=== PATIENT | male | born 1945 | race Caucasian/White ===

== ENCOUNTER 2021-12-28 08:04 | Day surgery (SDC) | payer MEDICARE ==
[2021-12-26 11:27] LABS: BASOPHILS # (AUTO) 0.1 X10'3 (0-0.2); BASOPHILS % (AUTO) 1.1 % (0-1); EOSINOPHILS # (AUTO) 0.5 X10'3 (0-0.9); EOSINOPHILS % (AUTO) 4.8 % (0-6); HEMATOCRIT 41.1 % (42.0-52.0); HEMOGLOBIN 13.9 g/dl (14.0-17.9); LYMPHOCYTES # (AUTO) 1.3 X10'3 (1.1-4.8); LYMPHOCYTES % (AUTO) 13.2 % (21-51); MEAN CORPUSCULAR HEMOGLOBIN 30.4 PG (27.0-31.0); MEAN CORPUSCULAR HGB CONC 33.8 g/dL (33.0-36.5); MEAN PLATELET VOLUME 7.2 FL (7.4-10.4); MONOCYTES # (AUTO) 1.5 X10'3 (0-0.9); MONOCYTES % (AUTO) 14.8 % (2-12); NEUTROPHILS # (AUTO) 6.7 X10'3 (1.8-7.7); NEUTROPHILS % (AUTO) 66.1 % (42-75); PLATELET COUNT 199 X10'3 (140-440); RED BLOOD COUNT 4.57 X10'6 (4.70-6.10); RED CELL DISTRIBUTION WIDTH 15.3 % (11.5-14.5); WHITE BLOOD COUNT 10.1 X10'3 (4.5-11.0)
[2021-12-26 11:42] LABS: ALANINE AMINOTRANSFERASE 20 U/L (12-78); ALBUMIN 3.7 G/DL (3.4-5.0); ALKALINE PHOSPHATASE 70 IU/L (46-116); ANION GAP 9 (8-16); ASPARTATE AMINO TRANSFERASE 18 U/L (10-37); BILIRUBIN,TOTAL 0.9 MG/DL (0.1-1.0); BLOOD UREA NITROGEN 20 MG/DL (7-18); BUN/CREATININE RATIO 19.8 (5.4-32.0); CALCIUM 8.7 MG/DL (8.5-10.1); CHLORIDE 102 MMOL/L (99-107); CREATININE 1.01 MG/DL (0.60-1.10); GLUCOSE 135 MG/DL (70-104); POTASSIUM 4.1 MMOL/L (3.5-5.1); SODIUM 137 MMOL/L (135-145); TOTAL CARBON DIOXIDE 26.4 MMOL/L (24-32); TOTAL PROTEIN 7.5 G/DL (6.4-8.2); eGFR 71 ML/MIN
[2021-12-26 11:49] LABS: APTT 35 SECONDS (22-32)
[~2021-12-28] VITALS: Ht 172.7 cm; Wt 74.9 kg
[2021-12-28] VITALS (11 sets, daily range): BP systolic 129–157; BP diastolic 58–83
[~2021-12-28 08:04] MED LIST: ASPI-83 PO; FLO0.4C PO; METO-539 PO; SIMV40TA PO; TRAZ-256 PO
[2021-12-28] MEDS ORDERED: nitroGLYCERIN 0.4mg SUBLingual tab SL PRN ×2 (08:25→11:40)
[2021-12-28] MEDS ORDERED: diphenhydrAMINE 25mg capsule PO PRN (08:25)
[2021-12-28] MEDS ORDERED: LORazepam 0.5 MG tablet PO PRN (08:25)
[2021-12-28] MEDS ORDERED: normal saline 1,000 ML IV SCH (08:25)
[2021-12-28] MEDS ORDERED: FLEC100T35 PO (08:33)
[2021-12-28] MEDS ORDERED: FLO0.4C PO (08:33)
[2021-12-28] MEDS ORDERED: WARF-65 PO (08:33)
[2021-12-28] MEDS ORDERED: midazolam 1 mg/ML 2ml injection ONE (09:55)
[2021-12-28] MEDS ORDERED: iohexol 350MG/ML 100ml bottle IV ONE ×3 (09:55→10:55)
[2021-12-28] MEDS ORDERED: fentaNYL/PF 50MCG/1 ML 2ML syringe ONE (09:55)
[2021-12-28] MEDS ORDERED: LIDOcaine 1% 30ml preserv. free vial ONE (09:55)
[2021-12-28] MEDS ORDERED: OXAZEpam 15mg capsule PO PRN (11:40)
[2021-12-28] MEDS ORDERED: normal saline 1000ml 1,000 ML IV SCH (11:40)
[2021-12-28] MEDS ORDERED: HYDROcodone/acetaminophen 10/325mg tab PO PRN (11:40)
[2021-12-28] MEDS ORDERED: ondansetron/PF 4mg/2ml inj IV PRN (11:40)
[2021-12-28] MEDS ORDERED: HYDROcodone/acetaminophen 5mg/325mg tablet PO PRN (11:40)
[2021-12-28] MEDS ORDERED: proCHLORperazine 10 MG/2 ml inj IV PRN (11:40)
== END 2021-12-28 16:55 | disposition home or self-care (01) ==
LOC: SSTAY O 08:04
PROVIDERS: ATTEND Internal Medicine Cardiovascular Disease
DX: I25.10 Atherosclerotic heart disease of native coronary artery without angina pectoris (principal); Z79.01 Long term (current) use of anticoagulants; I42.9 Cardiomyopathy, unspecified; I10 Essential (primary) hypertension; E78.5 Hyperlipidemia, unspecified; I73.9 Peripheral vascular disease, unspecified; Z98.890 Other specified postprocedural states; Z79.899 Other long term (current) drug therapy; Z20.822 Contact with and (suspected) exposure to COVID-19
CPT/HCPCS: 36415; 71046; 80053; 83880; 85025; 85610; 85730; 93005; 93459; 99152; 99153; C1760; C1769; J1644; J2250; J3010; J3490; J7030; Q9967; A4620; A6258